=== PATIENT | female | born 1955 | race Caucasian/White ===

== ENCOUNTER 2016-12-24 06:47 | Emergency (ER) | payer OTHER ==
[~2016-12-24] VITALS: Ht 165.1 cm; Wt 103.5 kg
[~2016-12-24 06:47] MED LIST: ALBU18HF INHALATION; ALBU2.5V3 NEB; ALBU8.5H5 INH; AZIT250T6 PO; FLUT12HF IH; PRED20TA PO
[2016-12-24 06:51] VITALS: Ht 165.1 cm; Wt 103.5 kg
[2016-12-24] MEDS ORDERED: ALBUTEROL 0.5% (NEB) 2.5 MG/0.5 ML AMP HHN STA ×2 (07:07→07:39)
[2016-12-24] MEDS ORDERED: METHYLPREDNISOLONE 125 MG INJ IM ONE (07:30)
--- NOTE | 2016-12-24 08:44 | RADRPT ---
PROCEDURE: XR Chest. CLINICAL INDICATION: chest pain TECHNIQUE: Single frontal view of the chest was obtained COMPARISON: 06/29/2016 FINDINGS: The heart and mediastinum are within normal limits. There are mild chronic interstitial changes throughout the lungs. There is no focal consolidation. There is no pleural effusion or pneumothorax. RPTAT: AA IMPRESSION: Unchanged mild chronic interstitial changes throughout the lungs. .Topher Mcgee MD, MD Date Time Electronically viewed and signed by .Topher Mcgee MD, on 12/24/2016 08:43 .S/
[2016-12-24] MEDS ORDERED: ALBU18HF INHALATION (08:57)
[2016-12-24] MEDS ORDERED: ALBU2.5V3 NEB (08:57)
[2016-12-24] MEDS ORDERED: PRED20TA PO (08:57)
--- NOTE | 2016-12-24 09:00 | ERD ---
ER Documentation Chief Complaint Date/Time DATE: 12/24/16 TIME: 08:58 Chief Complaint Complains of SOB hx of Asthma out of inhaler HPI This 61-year-old female complains of wheezing for last day. She ran out of her inhaler as well as medicine for her nebulizer. She has a history of asthma with 2 hospitalizations in the last year. She denies fevers, productive sputum , chest pain or abdominal pain. ROS All systems reviewed and are negative except as per history of present illness. Medications Home Meds Active Scripts Albuterol Sulfate* (Ventolin HFA*) 18 Gm Hfa.aer.ad, 2 PUFF INHALATION Q4H, #1 INHALER Prov:WILMER CLAROS MD 12/24/16 Albuterol Sulfate* (Albuterol Sulfate* Neb) 0.083%-3 Ml Neb, 2.5 MG NEB Q4 Y for SHORTNESS OF BREATH, #30 EA Prov:WILMER CLAROS MD 12/24/16 Prednisone* (Prednisone*) 20 Mg Tab, 60 MG PO DAILY for 6 Days, #15 TAB 60 mg by mouth for 3 days then 40 mg by mouth for 3 days Prov:WILMER CLAROS MD 12/24/16 Prednisone (Prednisone) 20 Mg Tablet, 40 MG PO DAILY, #4 TAB Prov:MARRY PETERSEN 10/02/16 Azithromycin* (Azithromycin*) 250 Mg Tablet, 500 MG PO DAILY for 3 Days, #1 TAB Prov:MARRY PETERSEN 10/02/16 Salmeterol Xinaf-Fluticasone* (Advair HFA*) 45/212 Aerosol Inhaler, 2 INH IH BID , #1 INHALER Prov:MARRY PETERSEN DO 10/02/16 Albuterol Sulfate* (Ventolin HFA*) 18 Gm Hfa.aer.ad, 2 PUFF INHALATION Q4H, #1 INHALER Prov:MARRY PETERSEN DO 10/02/16 Albuterol Sulfate* (Albuterol Sulfate* HFA) 8.5 Gm Hfa.aer.ad, 1-2 PUFF INH Q4 Y for SHORTNESS OF BREATH, #1 EA Prov:HANY BUCHANAN MD 07/31/15 Reported Medications Albuterol Sulfate* (Albuterol Sulfate* Neb) 0.083%-3 Ml Neb, 2.5 MG NEB Q6 Y for WHEEZING AND SOB, #30 VIAL 11/29/15 Allergies Allergies: Coded Allergies: No Known Allergy (Unverified , 10/02/16) PMhx/Soc History of Surgery: No Anesthesia Reaction: No Hx Neurological Disorder: No Hx Respiratory Disorders: Yes Hx Cardiac Disorders: Yes Hx Psychiatric Problems: No Hx Miscellaneous Medical Probl: Yes (gastritis, HTN, asthma) Hx Alcohol Use: No Hx Substance Use: No Hx Tobacco Use: No Physical Exam Vitals Vital Signs Date Time Temp Pulse Resp B/P Pulse Ox O2 Delivery O2 Flow Rate FiO2 12/24/16 07:45 91 20 96 21 12/24/16 07:17 85 20 96 21 12/24/16 06:51 98.1 85 20 173/75 96 Physical Exam Const: [] Alert, [id number]. Head: Atraumatic Eyes: Normal Conjunctiva ENT: Normal External Ears, Nose and Mouth. Neck: Full range of motion..~ No meningismus. Resp: Clear to auscultation bilaterally. Diffuse wheezing without rales or retractions. Cardio: Regular rate and rhythm, no murmurs Abd: Soft, non tender, non distended. Normal bowel sounds Skin: No petechiae or rashes Back: No midline or flank tenderness Ext: No cyanosis, or edema. No calf swelling or Homans sign. Neur: Awake and alert Psych: Normal Mood and Affect Results 24 hrs Current Medications Medications (Trade) Dose Ordered Sig/Hussain Route PRN Reason Start Time Stop Time Status Last Admin Dose Admin Methylprednisolone Sodium Succinate (Solu-Medrol) 125 mg ONCE ONCE IM 12/24/16 07:30 12/24/16 07:31 DC 12/24/16 07:23 Albuterol (Proventil 0.5% (Neb)) 5 mg ONCE STAT HHN 12/24/16 07:07 12/24/16 07:09 DC 12/24/16 07:16 Albuterol (Proventil 0.5% (Neb)) 10 mg ONCE STAT HHN 12/24/16 07:39 12/24/16 07:40 DC 12/24/16 07:43 Procedures/MDM Patient was given albuterol treatment 5 mg and 10 mg for persistent wheezing. Patient was given Solu-Medrol 125 mg I am and had improved breath sounds on serial exam and no evidence of hypoxemia or tachycardia. Patient felt better after observation and treatment. Patient presents with vaginal exacerbation without signs of pneumonia, signs or symptoms or risk factors for pulmonary embolism no evidence of chest pain or symptoms acute coronary syndrome. Patient will be treated with refills of her albuterol and prednisone taper at home. Patient is advised to return for any worsening symptoms with primary care doctor. Departure Diagnosis: Primary Impression: Asthma attack Condition: Stable Patient Instructions: Asthma, Acute (Adult) Additional Instructions: Cheque otro vez con lamb doctor primario en el proximo gunderson or regresa para mas o nueva simptomas. WILMER CLAROS MD Dec 24, 2016 08:59
[2016-12-24 09:08] VITALS: RESP 18
== END 2016-12-24 09:09 | disposition home or self-care (01) ==
LOC: FTE 06:47
DX: J45.901 Unspecified asthma with (acute) exacerbation (principal); I10 Essential (primary) hypertension
CPT/HCPCS: 71010; 94644; 94664; J2930; Z7610; 96372

== ENCOUNTER 2017-01-29 07:14 | Emergency (ER) | payer OTHER ==
[~2017-01-29] VITALS: Wt 90.0 kg
[2017-01-29] MEDS ORDERED: ONDANSETRON (ODT) 4 MG TAB ODT STA (07:32)
[2017-01-29] MEDS ORDERED: ALBUTEROL 0.083% (NEB) 2.5 MG/3 ML AMP INH STA (07:32)
--- NOTE | 2017-01-29 07:39 | ERD ---
ER Documentation Chief Complaint Date/Time DATE: 01/29/17 TIME: 07:36 Chief Complaint SOB WITH COUGHING FOR THE PAST 3 DAYS. MILD DISTRESS. MILD ACCESS USE HPI Patient is a 61-year-old female who comes in coughing and congested for the last 3 days. She states it is a cough productive of slight yellow phlegm without any fever. She has a mild sore throat with bilateral otalgia and a clear runny nose. She has been using her breathing treatments without any relief. Denies any sick contacts, chest pain, abdominal pain, nausea, vomiting , diarrhea, dysuria, hematuria, flank pain, back pain, abnormal bleeding, bruising, or rashes. She has not traveled out of the country nor she been on any recent antibiotics. The remainder review systems are negative. ROS All systems reviewed and are negative except as per history of present illness. Medications Home Meds Active Scripts Salmeterol Xinaf-Fluticasone* (Advair HFA*) 45 Aerosol Inhaler, 2 INH IH BID , #1 INHALER Prov:MARRY PETERSEN DO 10/02/16 Albuterol Sulfate* (Albuterol Sulfate* HFA) 8.5 Gm Hfa.aer.ad, 1-2 PUFF INH Q4 Y for SHORTNESS OF BREATH, #1 EA Prov:HANY BUCHANAN MD 07/31/15 Discontinued Reported Medications Albuterol Sulfate* (Albuterol Sulfate* Neb) 0.083%-3 Ml Neb, 2.5 MG NEB Q6 Y for WHEEZING AND SOB, #30 VIAL 11/29/15 Discontinued Scripts Albuterol Sulfate* (Ventolin HFA*) 18 Gm Hfa.aer.ad, 2 PUFF INHALATION Q4H, #1 INHALER Prov:WILMER CLAROS MD 12/24/16 Albuterol Sulfate* (Albuterol Sulfate* Neb) 0.083%-3 Ml Neb, 2.5 MG NEB Q4 Y for SHORTNESS OF BREATH, #30 EA Prov:WILMER CLAROS MD 12/24/16 Prednisone* (Prednisone*) 20 Mg Tab, 60 MG PO DAILY for 6 Days, #15 TAB 60 mg by mouth for 3 days then 40 mg by mouth for 3 days Prov:WILMER CLAROS MD 12/24/16 Prednisone (Prednisone) 20 Mg Tablet, 40 MG PO DAILY, #4 TAB Prov:MARRY PETERSEN DO 10/02/16 Azithromycin* (Azithromycin*) 250 Mg Tablet, 500 MG PO DAILY for 3 Days, #1 TAB Prov:MARRY PETERSEN DO 10/02/16 Albuterol Sulfate* (Ventolin HFA*) 18 Gm Hfa.aer.ad, 2 PUFF INHALATION Q4H, #1 INHALER Prov:MARRY PETERSEN DO 10/02/16 Allergies Allergies: Coded Allergies: No Known Allergy (Unverified , 01/29/17) PMhx/Soc History of Surgery: No Anesthesia Reaction: No Hx Neurological Disorder: No Hx Respiratory Disorders: Yes Hx Cardiac Disorders: Yes Hx Psychiatric Problems: No Hx Miscellaneous Medical Probl: Yes (gastritis, HTN, asthma) Hx Alcohol Use: No Hx Substance Use: No Hx Tobacco Use: No Smoking Status: Never smoker FmHx Family History: coronary disease, diabetes Physical Exam Vitals Vital Signs Date Time Temp Pulse Resp B/P Pulse Ox O2 Delivery O2 Flow Rate FiO2 01/29/17 09:38 77 22 92 21 01/29/17 08:07 92 21 01/29/17 08:07 97 22 97 21 01/29/17 07:55 Nasal Cannula 2 01/29/17 07:16 97.8 94 26 144/72 93 Physical Exam Const: [] Well-developed well-nourished female sitting on the bed with mild respiratory distress Head: Atraumatic normocephalic Eyes: Normal Conjunctiva ENT: Normal External Ears, Nose and Mouth. Tympanic membrane slightly erythematous with serous otitis media bilaterally Neck: Full range of motion..~ No meningismus. Resp: Bilateral end expiratory wheezing noted, mild tachypnea, no retractions , nasal flaring, or crackles noted Cardio: Regular rate and rhythm, no murmurs Abd: Soft, non tender, non distended. Normal bowel sounds Skin: No petechiae or rashes Back: No midline or flank tenderness Ext: No cyanosis, or edema Neur: Awake and alert, oriented 3, GCS of 15, moves all extremities equally Psych: Normal Mood and Affect Result Diagram: 01/29/1712 01/29/17 0712 Results 24 hrs Laboratory Tests Test 01/29/17 07:12 Activated Partial Thromboplast Time 28.9Sec Alanine Aminotransferase (ALT/SGPT) 20IU/L Albumin 4.1g/dl Albumin/Globulin Ratio 1.20 Alkaline Phosphatase 94IU/L Anion Gap 14 Aspartate Amino Transf (AST/SGOT) 24IU/L Basophils # 0.110^3/ul Basophils % 1.1% Blood Urea Nitrogen 12mg/dl Calcium Level 8.9mg/dl Carbon Dioxide Level 32mmol/L Chloride Level 103mmol/L Creatinine 0.66mg/dl Direct Bilirubin 0.00mg/dl Eosinophils # 0.910^3/ul Eosinophils % 11.4% Globulin 3.40g/dl Glucose Level 104mg/dl Hematocrit 47.1% Hemoglobin 14.9g/dl INR International Normalized Ratio 0.94 Indirect Bilirubin 0.1mg/dl Lymphocytes # 1.810^3/ul Lymphocytes % 22.1% Mean Corpuscular Hemoglobin 28.4pg Mean Corpuscular Hemoglobin Concent 31.6g/dl Mean Corpuscular Volume 89.7fl Mean Platelet Volume 11.5fl Monocytes # 0.610^3/ul Monocytes % 6.9% Neutrophils # 4.810^3/ul Neutrophils % 58.3% Nucleated Red Blood Cells # 0.010^3/ul Nucleated Red Blood Cells % 0.0/100WBC Platelet Count 91102^3/UL Potassium Level 3.9mmol/L Prothrombin Time 12.6Sec Prothrombin Time Ratio 1.0 Red Blood Count 5.2510^6/ul Red Cell Distribution Width 14.3% Sodium Level 145mmol/L Total Bilirubin 0.1mg/dl Total Protein 7.5g/dl Troponin I 0.016ng/ml White Blood Count 8.310^3/ul Current Medications Medications (Trade) Dose Ordered Sig/Hussain Route PRN Reason Start Time Stop Time Status Last Admin Dose Admin Albuterol (Proventil 0.083% (Neb)) 5 mg ONCE STAT INH 01/29/17 07:32 01/29/17 07:36 DC 01/29/17 08:07 Dexamethasone (Decadron) 6 mg ONCE ONCE IV 01/29/17 08:00 01/29/17 08:01 DC 01/29/17 08:18 Hydrocodone Bit/ Homatropine Methylb (Hycodan Liquid) 10 ml ONCE ONCE PO 01/29/17 08:00 01/29/17 08:01 DC 01/29/17 08:18 Ondansetron HCl 4 mg 4 mg ONCE STAT ODT 01/29/17 07:32 01/29/17 07:37 DC 01/29/17 08:18 Levofloxacin/ Dextrose (Levaquin 750 Mg/ D5W 150 ml (Pmx)) 150 ml @ 100 mls/hr ONCE ONCE IVPB 01/29/17 09:30 01/29/17 10:59 DC 01/29/17 09:32 Albuterol (Proventil 0.083% (Neb)) 5 mg ONCE STAT HHN 01/29/17 09:27 01/29/17 09:28 DC 01/29/17 09:37 Procedures/MDM Differential includes but is not limited to asthma exacerbation, bronchitis, pneumonia, influenza, pulmonary edema, viral syndrome EKG: Rate/Rhythm: Normal Sinus Rhythm at 80 beats per minutes without any evidence for acute ischemia noted, no old EKG available for comparison QRS, ST, T-waves: No changes consistent w/ acute ischemia Impression: No evidence of ischemia or arrhythmia Chest x-ray is consistent with bronchitis I reevaluated the patient and she was still wheezing so I ordered her another breathing treatment and after that she is moving air much better. She states she feels improved and would like to be discharged home. I advised her to use her inhaler every 2-3 hours for the next 2-3 days and to follow-up with her primary care physician for recheck. She states she would. Departure Diagnosis: Primary Impression: Bronchitis Additional Impression: Asthma exacerbation Condition: Good Patient Instructions: Asthma, Bronchitis With Wheezing (Adult) Additional Instructions: Use her inhaler every 2-3 hours for the next 2-3 days. Take all the medications as prescribed and follow-up with your primary care physician in the next 2-3 days for recheck. Return to the emergency department for any increased shortness of breath, wheezing not responding to your inhaler, chest pain, or new or worsening symptoms. PUJA CARRERA Jan 29, 2017 07:39
[2017-01-29] MEDS ORDERED: HYDROCODONE/HOMATROPINE 5ML CUP PO ONE (08:00)
[2017-01-29] MEDS ORDERED: DEXAMETHASONE 10 MG/ML 1 ML INJ IV ONE (08:00)
[2017-01-29 08:05] LABS: ADD SCAN DIFF NO
[2017-01-29 08:11] LABS: BASOPHIL # 0.1 10^3/ul (0.0-0.1); BASOPHILS % 1.1 % (0.0-2.0); EOSINOPHILS # 0.9 10^3/ul (0.0-0.5); EOSINOPHILS % 11.4 % (0.0-7.0); HEMATOCRIT 47.1 % (37.0-47.0); HEMOGLOBIN 14.9 g/dl (12.0-16.0); LYMPHOCYTES # 1.8 10^3/ul (0.8-2.9); LYMPHOCYTES % 22.1 % (15.0-51.0); MEAN CORPUSCULAR HEMOGLOBIN 28.4 pg (29.0-33.0); MEAN CORPUSCULAR HGB CONC 31.6 g/dl (32.0-37.0); MEAN CORPUSCULAR VOLUME 89.7 fl (82.0-101.0); MEAN PLATELET VOLUME 11.5 fl (7.4-10.4); MONOCYTE # 0.6 10^3/ul (0.3-0.9); MONOCYTES % 6.9 % (0.0-11.0); NEUTROPHIL # 4.8 10^3/ul (1.6-7.5); NEUTROPHILS % 58.3 % (39.0-77.0); PLATELET COUNT 283 10^3/UL (140-415); RED BLOOD COUNT 5.25 10^6/ul (4.20-5.40); RED CELL DISTRIBUTION WIDTH 14.3 % (11.5-14.5); WHITE BLOOD COUNT 8.3 10^3/ul (4.8-10.8)
[2017-01-29 08:26] LABS: ALBUMIN 4.1 g/dl (3.3-4.9)
[2017-01-29 08:27] LABS: INR 0.94; POTASSIUM 3.9 mmol/L (3.5-5.1); PROTIME 12.6 Sec (12.2-14.2)
[2017-01-29 08:28] LABS: PARTIAL THROMBOPLASTIN TIME 28.9 Sec (25.0-35.0)
[2017-01-29 08:29] LABS: CREATININE 0.66 mg/dl (0.44-1.00)
[2017-01-29 08:30] LABS: ALBUMIN/GLOBULIN RATIO 1.2; BILIRUBIN,INDIRECT 0.1 mg/dl (0-1.1); BILIRUBIN,TOTAL 0.1 mg/dl (0.2-1.3); CALCIUM 8.9 mg/dl (8.4-10.2); TOTAL PROTEIN 7.5 g/dl (6.1-8.1)
--- NOTE | 2017-01-29 08:34 | RADRPT ---
PROCEDURE: Chest Radiograph. CLINICAL INDICATION: Shortness of breath TECHNIQUE: Single frontal chest radiograph. COMPARISON: Chest radiograph 12/24/2016 FINDINGS: The cardiomediastinal silhouette is within normal limits. There is diffuse interstitial coarsening and bronchial wall thickening which is stable over time and likely related to chronic bronchitis. N o confluent or lobar infiltrate is seen.. The bones are intact. IMPRESSION: 1. Stable coarsened interstitial opacities and bronchial wall thickening suggesting chronic bronchi tis. 2. No evidence of superimposed acute cardiopulmonary disease. RPTAT: KK .[place]ana Alexandre MD, MD Date Time Electronically viewed and signed by .Montana Alexandre MD, on 01/29/2017 08:33 .B/
[2017-01-29 08:42] LABS: TROPONIN-I 0.016 ng/ml (0.00-0.12)
[2017-01-29] MEDS ORDERED: ALBUTEROL 0.083% (NEB) 2.5 MG/3 ML AMP HHN STA (09:27)
[2017-01-29] MEDS ORDERED: LEVOFLOXACIN 750MG/D5W (PMX) 150 ML IVPB ONE (09:30)
[2017-01-29] MEDS ORDERED: HYDR473S12 PO (12:17)
[2017-01-29] MEDS ORDERED: PRED20TA PO (12:17)
[2017-01-29] MEDS ORDERED: BENZ100C70 PO (12:18)
[2017-01-29] MEDS ORDERED: LEVO750T25 PO (12:18)
[2017-01-29] MEDS ORDERED: ALBU90AE INHALATION (12:36)
[2017-01-29 12:45] VITALS: BP 139/78; PULSE 80; RESP 18
== END 2017-01-29 12:47 | disposition home or self-care (01) ==
LOC: E/R 07:14
DX: J20.9 Acute bronchitis, unspecified (principal); R40.2252 Coma scale, best verbal response, oriented, at arrival to emergency department; J45.901 Unspecified asthma with (acute) exacerbation; I10 Essential (primary) hypertension; R40.2142 Coma scale, eyes open, spontaneous, at arrival to emergency department; R40.2362 Coma scale, best motor response, obeys commands, at arrival to emergency department
CPT/HCPCS: 36415; 71010; 80053; 84484; 85025; 85610; 85730; 93005; 94640; 96374; 96375; J1100; J1956; Z7502; Z7610; 94664

== ENCOUNTER → 2017-02-01 | Outpatient (CLI) | END | disposition home or self-care (01) | DX: M17.11 Unilateral primary osteoarthritis, right knee (principal); M25.561 Pain in right knee | CPT/HCPCS: 20610; J1030; Z7610 ==

== ENCOUNTER 2017-03-16 08:09 | Emergency (ER) | payer OTHER ==
[~2017-03-16] VITALS: Ht 157.5 cm; Wt 102.0 kg
[~2017-03-16 08:09] MED LIST changes: -ALBU18HF INHALATION; -ALBU2.5V3 NEB; +ALBU90AE INHALATION; -AZIT250T6 PO; +BENZ100C70 PO; +HYDR473S12 PO; +LEVO750T25 PO
[2017-03-16 08:10] VITALS: Ht 157.5 cm; Wt 102.0 kg
[2017-03-16] MEDS ORDERED: LEVALBUTEROL (NEB) 1.25 MG/0.5 ML AMP HHN ONE (09:00)
[2017-03-16] MEDS ORDERED: METHYLPREDNISOLONE 125 MG INJ IM ONE (09:00)
--- NOTE | 2017-03-16 10:17 | RADRPT ---
PROCEDURE: XR Chest. CLINICAL INDICATION: Cough, wheezing TECHNIQUE: Single frontal chest x-ray. COMPARISON: 01/29/2017 FINDINGS: No acute infiltrate, pleural effusion or pneumothorax is identified. Cardiomediastinal silhouette i s within normal limits. The osseous structures are unremarkable. IMPRESSION: 1. No evidence of acute cardiopulmonary process. RPTAT: EE .Adi Kenny MD, MD Date Time Electronically viewed and signed by .Adi Kenny MD, on 03/16/2017 10:17 .R/
[2017-03-16] MEDS ORDERED: ALBU8.5H3 INH (10:28)
[2017-03-16] MEDS ORDERED: ALBU2.5V3 NEB (10:29)
[2017-03-16] MEDS ORDERED: PRED20TA PO ×2 (10:30→10:31)
--- NOTE | 2017-03-16 10:36 | ERD ---
ER Documentation Chief Complaint Date/Time DATE: 03/16/17 TIME: 10:32 Chief Complaint ASTHMA ATTACK HPI Patient is a 61-year-old female with a past medical history of asthma who presents the ED with asthma exacerbation and cough for 3 days. She states that she ran out of her albuterol. She usually takes albuterol but did not receive a refill and has not been taking any medications for the last 3 days. She complains of wheezing and shortness of breath. She states that her symptoms are exactly what she has experienced in the past with her asthma exacerbation. She denies fever or chills. She denies URI symptoms. Denies leg pain or swelling. She denies chest pain. She denies recent travel or recent surgeries. ROS All systems reviewed and are negative except as per history of present illness. Medications Home Meds Active Scripts Prednisone* (Prednisone*) 20 Mg Tab, 60 MG PO DAILY for 6 Days, TAB Take Prednisone 60mg PO x 3 days, followed by Prednisone 40mg PO x 3 days. Prov:DEWAYNE HAIR PA-C 03/16/17 Albuterol Sulfate* (Albuterol Sulfate* Neb) 0.083%-3 Ml Neb, 2.5 MG NEB Q4 Y for SHORTNESS OF BREATH, #30 EA Prov:DEWAYNE HAIR PA-C 03/16/17 Albuterol Sulfate* (Proair HFA*) 8.5 Gm Hfa.aer.ad, 2 PUFF INH Q4, #2 INHALER Prov:DEWAYNE HAIR PA-C 03/16/17 Albuterol Sulfate (Proair Respiclick) 90 Mcg Aer.pow.ba, 2 PUFFS INHALATION Q3HWA for 7 Days, #1 BOTTLE 1 Refill Prov:PUJA CARRERA 01/29/17 Levofloxacin* (Levaquin*) 750 Mg Tablet, 750 MG PO DAILY for 5 Days, TAB 0 Refills Prov:PUJA CARRERA 01/29/17 Benzonatate* (Tessalon Perle*) 100 Mg Capsule, 200 MG PO Q8H Y for COUGH, #30 CAP 0 Refills Prov:PUJA CARRERA 01/29/17 Hydrocodone-Chlorpheniramine Polis* (Hydrocodone-Chlorpheniramine Polis*) 10-8MG /5ML Yvette.er.12h, 5 ML PO Q12H Y for COUGH, #90 ML 0 Refills Prov:PUJA CARRERA 01/29/17 Prednisone* (Prednisone*) 20 Mg Tab, 60 MG PO DAILY for 5 Days, TAB 0 Refills Prov:PUJA CARRERA 01/29/17 Salmeterol Xinaf-Fluticasone* (Advair HFA*) 45/212 Aerosol Inhaler, 2 INH IH BID , #1 INHALER Prov:MARRY PETERSEN DO 10/02/16 Albuterol Sulfate* (Albuterol Sulfate* HFA) 8.5 Gm Hfa.aer.ad, 1-2 PUFF INH Q4 Y for SHORTNESS OF BREATH, #1 EA Prov:HANY BUCHANAN MD 07/31/15 Allergies Allergies: Coded Allergies: No Known Allergy (Unverified , 01/29/17) PMhx/Soc Medical and Surgical Hx: pt denies Surgical Hx History of Surgery: No Anesthesia Reaction: No Hx Neurological Disorder: No Hx Respiratory Disorders: Yes Hx Cardiac Disorders: Yes Hx Psychiatric Problems: No Hx Miscellaneous Medical Probl: Yes (gastritis, HTN, asthma) Hx Alcohol Use: No Hx Substance Use: No Hx Tobacco Use: No Smoking Status: Never smoker FmHx Family History: No coronary disease, No diabetes, No other Physical Exam Vitals Vital Signs Date Time Temp Pulse Resp B/P Pulse Ox O2 Delivery O2 Flow Rate FiO2 03/16/17 09:13 85 20 97 21 03/16/17 08:10 98.3 100 26 169/88 93 Physical Exam GENERAL: Well-developed, well-nourished female. Appears in no acute distress. HEAD: Normocephalic, atraumatic. EYES: Pupils are equally reactive bilaterally. EOMs grossly intact. No conjunctival erythema. ENT: Moist mucous membranes. No uvula deviation. No kissing tonsils. No exudates. NECK: Supple. No lymphadenopathy or thyromegaly. No meningismus. negative kernig. negative brudinski. LUNG: Clear to auscultation bilaterally. No rhonchi,rales or coarse breath sounds. Wheezing in all lung lange. No retractions. HEART: Regular rate and rhythm. No murmurs, rubs or gallops. Extremities: Equal pulses bilaterally. No peripheral clubbing, cyanosis or edema. No unilateral leg swelling. Negative Homans sign NEUROLOGIC: Alert and oriented. Moving all four extremities. 5/5 strength in all extremities. Normal speech. Steady gait. SKIN: Normal color. Warm and dry. No rashes or lesions. Capillary refill < 2 seconds Results 24 hrs Current Medications Medications (Trade) Dose Ordered Sig/Hussain Route PRN Reason Start Time Stop Time Status Last Admin Dose Admin Methylprednisolone Sodium Succinate (Solu-Medrol) 125 mg ONCE ONCE IM 03/16/17 09:00 03/16/17 09:01 DC 03/16/17 09:49 Levalbuterol (Xopenex Neb) 1.25 mg ONCE ONCE HHN 03/16/17 09:00 03/16/17 09:01 DC 03/16/17 09:11 Procedures/MDM ER COURSE: I kept the patient and/or family informed of laboratory and diagnostic imaging results throughout the emergency room course. IMAGING STUDIES [place] [id number] Radiology Main Line: [phone] DIAGNOSTIC IMAGING REPORT Patient: SU AGEE : 1955 Age: 61 Sex: F MR #: [id number] DOS: 03/16/17 0857 Ordering MD: DEWAYNE HAIR PA-C Location: [facility] Room/Bed: PROCEDURE: XR Chest. CLINICAL INDICATION: Cough, wheezing TECHNIQUE: Single frontal chest x-ray. COMPARISON: 01/29/2017 FINDINGS: No acute infiltrate, pleural effusion or pneumothorax is identified. Cardiomediastinal silhouette is within normal limits. The osseous structures are unremarkable. IMPRESSION: 1. No evidence of acute cardiopulmonary process. RPTAT: EE .Adi Kenny MD, Date Time Electronically viewed and signed by .dAi Kenny MD, on 03/16/2017 10: 17 .R/ CC: DEWAYNE HAIR PA-C MEDICATIONS Solu-Medrol 125 mg IM. Tolerated well with no adverse reaction PROCEDURES RT consult. Xopenex. Tolerated well with no adverse reaction. MEDICAL DECISION MAKING: This is a 61-year-old female who presents with asthma exacerbation 3 days vital signs were reviewed. Patient is afebrile. Patient is not hypoxic. Patient is not toxic or ill-appearing. Intake patient had an oxygen saturation of 93. Patient did have wheezing in all lung lange. Her x-rays of by radiologist is unremarkable. I reexamined patient after administration of medication and she stated improvement in her symptoms. Patient's oxygen saturation had increased to 97%. Low suspicion for pneumonia, PE, pneumothorax , ACS, epiglottitis, obstruction, TB, pertussis, meningitis, sepsis. DISCHARGE: At this time, patient is stable for discharge and outpatient management with no new complaints during the ER course. Patient was sent home with albuterol, ProAir air, prednisone and a copy of her imaging report.. Patient will be discharged home with instructions to recheck for new or worsening symptoms such as fever, nausea, weakness, LOC and to follow up with primary care in the next 1 -2 days. Patient was advised to return to the ER for any new or worsening symptoms. Plan was discussed and patient and/or family understands and agrees. Home instructions were given. Departure Diagnosis: Primary Impression: Asthma with acute exacerbation Asthma severity: unspecified severity Qualified Code: J45.901 - Asthma with acute exacerbation, unspecified asthma severity Condition: Stable Patient Instructions: Asthma, Acute (Adult) Referrals: [facility] (PCP) Additional Instructions: Llame al doctor REJI y lloyd ian TRINIDAD PARA DENTRO DE 1-2 ISABEL.Dgale a la secretaria que nosotros le instruimos hacer esta trinidad.Avise o llame si lamb condicin se empeora antes de la trinidad. Regresa aqui si peor o no mejor. DEWAYNE HAIR PA-C March 16, 2017 10:36
[2017-03-16 10:46] VITALS: BP 119/65; PULSE 91; RESP 20; TEMP 98.5
== END 2017-03-16 10:47 | disposition home or self-care (01) ==
LOC: FTE 08:09
DX: J45.901 Unspecified asthma with (acute) exacerbation (principal); I10 Essential (primary) hypertension
CPT/HCPCS: 71010; 94664; 96372; J2930; Z7502; Z7610

== ENCOUNTER 2017-05-04 09:19 | Emergency (ER) | payer MEDICARE, OTHER ==
[~2017-05-04] VITALS: Ht 162.6 cm; Wt 104.0 kg
[~2017-05-04 09:19] MED LIST changes: +ALBU2.5V3 NEB; +ALBU8.5H3 INH
[2017-05-04 09:22] VITALS: Ht 162.6 cm; Wt 104.0 kg
[2017-05-04] MEDS ORDERED: METHYLPREDNISOLONE 125 MG INJ IM STA (09:56)
[2017-05-04] MEDS ORDERED: ALBUTEROL 0.5% (NEB) 2.5 MG/0.5 ML AMP INH STA ×2 (09:56→12:15)
[2017-05-04] MEDS ORDERED: IPRATROPIUM (NEB) 0.5 MG/2.5 ML AMP INH STA (09:56)
--- NOTE | 2017-05-04 10:48 | RADRPT ---
PROCEDURE: XR Chest 1 View. CLINICAL INDICATION: Shortness of breath, asthma. TECHNIQUE: AP view of the chest was obtained. COMPARISON: March 16, 2017 FINDINGS: The heart size is within normal limits. Calcified atherosclerosis is noted in the aorta. Scattered atelectasis is noted in the bilateral lower lobes. No consolidations are identified. No pneumothora x is seen. Osseous structures are intact. IMPRESSION: Calcified atherosclerosis in the aorta. Scattered atelectasis in the bilateral lower lobes. RPTAT: AA .Dread Drummond MD, Date Time Electronically viewed and signed by .Dread Drummond MD, on 05/04/2017 10:48 .P/
[2017-05-04] MEDS ORDERED: ALBU18HF INHALATION (13:42)
[2017-05-04] MEDS ORDERED: PRED20TA PO (13:42)
[2017-05-04] MEDS ORDERED: ALBU2.5V3 NEB (13:43)
--- NOTE | 2017-05-04 14:09 | ERD ---
ER Documentation Chief Complaint Date/Time DATE: 05/04/17 TIME: 14:06 Chief Complaint BIB C/O COUGH, CONGESTION, & SOB SINCE WEDNESDAY. WHEEZING AUSCULTATED HPI 61-year-old female patient with a past medical history of asthma presents to the ED complaining of a productive cough, congestion, shortness of breath since 5 days ago. Reports that she feels like she is wheezing. States that she is taking Combivent and then near prescribed by a doctor in [place]. Patient denies any recent traveling. Denies any chest pain, abdominal pain, dyspnea on exertion, orthopnea, nausea, vomiting, diarrhea, rashes. Denies any leg swelling. ROS All systems reviewed and are negative except as per history of present illness. Medications Home Meds Active Scripts Albuterol Sulfate* (Albuterol Sulfate* Neb) 0.083%-3 Ml Neb, 2.5 MG NEB Q4 Y for SHORTNESS OF BREATH, #30 EA Prov:RY ORTEGA PA-C 05/04/17 Albuterol Sulfate* (Ventolin HFA*) 18 Gm Hfa.aer.ad, 2 PUFF INHALATION Q4H, #1 INHALER Prov:RY ORTEGA PA-C 05/04/17 Prednisone* (Prednisone*) 20 Mg Tab, 40 MG PO DAILY for 4 Days, TAB Prov:RY ORTEGA PA-C 05/04/17 Prednisone* (Prednisone*) 20 Mg Tab, 60 MG PO DAILY for 6 Days, TAB Take Prednisone 60mg PO x 3 days, followed by Prednisone 40mg PO x 3 days. Prov:DEWAYNE HAIR PA-C 03/16/17 Albuterol Sulfate* (Albuterol Sulfate* Neb) 0.083%-3 Ml Neb, 2.5 MG NEB Q4 Y for SHORTNESS OF BREATH, #30 EA Prov:DEWAYNE HAIR PA-C 03/16/17 Albuterol Sulfate* (Proair HFA*) 8.5 Gm Hfa.aer.ad, 2 PUFF INH Q4, #2 INHALER Prov:DEWAYNE HAIR PA-C 03/16/17 Albuterol Sulfate (Proair Respiclick) 90 Mcg Aer.pow.ba, 2 PUFFS INHALATION Q3HWA for 7 Days, #1 BOTTLE 1 Refill Prov:PUJA CARRERA 01/29/17 Levofloxacin* (Levaquin*) 750 Mg Tablet, 750 MG PO DAILY for 5 Days, TAB 0 Refills Prov:PUJA CARRERA 01/29/17 Benzonatate* (Tessalon Perle*) 100 Mg Capsule, 200 MG PO Q8H Y for COUGH, #30 CAP 0 Refills Prov:PUJA CARRERA 01/29/17 Hydrocodone-Chlorpheniramine Polis* (Hydrocodone-Chlorpheniramine Polis*) 10-8MG /5ML Yvette.er.12h, 5 ML PO Q12H Y for COUGH, #90 ML 0 Refills Prov:PUJA CARRERA 01/29/17 Prednisone* (Prednisone*) 20 Mg Tab, 60 MG PO DAILY for 5 Days, TAB 0 Refills Prov:PUJA CARRERA 01/29/17 Salmeterol Xinaf-Fluticasone* (Advair HFA*) 45/212 Aerosol Inhaler, 2 INH IH BID , #1 INHALER Prov:MARRY PETERSEN DO 10/02/16 Albuterol Sulfate* (Albuterol Sulfate* HFA) 8.5 Gm Hfa.aer.ad, 1-2 PUFF INH Q4 Y for SHORTNESS OF BREATH, #1 EA Prov:HANY BUCHANAN MD 07/31/15 Allergies Allergies: Coded Allergies: No Known Allergy (Unverified , 01/29/17) PMhx/Soc History of Surgery: No Anesthesia Reaction: No Hx Neurological Disorder: No Hx Respiratory Disorders: Yes Hx Cardiac Disorders: Yes Hx Psychiatric Problems: No Hx Miscellaneous Medical Probl: Yes (gastritis, HTN, asthma) Hx Alcohol Use: No Hx Substance Use: No Hx Tobacco Use: No Smoking Status: Never smoker Physical Exam Vitals Vital Signs Date Time Temp Pulse Resp B/P Pulse Ox O2 Delivery O2 Flow Rate FiO2 05/04/17 14:25 103 96 Room Air 05/04/17 12:33 83 19 95 21 05/04/17 10:13 80 19 95 21 05/04/17 09:22 99.0 94 20 167/79 90 Physical Exam Const: Ale-mvw-avlbhtqjw, well-nourished. In no acute distress. Head: Atraumatic, normocephalic Eyes: Normal Conjunctiva without injection. No purulent discharge. PERRL. EOMI ENT: Normal external ear. Ear canal without erythema. Tympanic membrane pearly shields without effusion or bulging. Nasal canal clear with normal turbinates. Moist oropharynx without tonsillar exudates. Non-erythematous pharynx. Uvula midline. No drooling. No trismus. Neck: Full range of motion. No meningismus. No cervical lymphadenopathy. Resp: Expiratory wheezing and inspiratory wheezing noted. No rhonchi, rales, or crackles. No accessory muscle use. No retractions. Cardio: Regular rate and rhythm. No murmurs, rubs or gallops. Abd: Soft, non tender, non distended. Normal bowel sounds. No palpable masses. No rebound tenderness. No guarding. Skin: No petechiae or rashes Back: No midline tenderness. No CVA tenderness. Ext: No cyanosis, or edema. Neur: Awake and alert. Psych: Normal Mood and Affect Results 24 hrs Current Medications Medications (Trade) Dose Ordered Sig/Hussain Route PRN Reason Start Time Stop Time Status Last Admin Dose Admin Albuterol (Proventil 0.5% (Neb)) 10 mg ONCE STAT INH 05/04/17 09:56 05/04/17 09:57 DC 05/04/17 10:07 Ipratropium Temperance (Atrovent 0.02% (Neb)) 1 mg ONCE STAT INH 05/04/17 09:56 05/04/17 09:57 DC 05/04/17 10:07 Methylprednisolone Sodium Succinate (Solu-Medrol) 125 mg ONCE STAT IM 05/04/17 09:56 05/04/17 09:57 DC 05/04/17 10:07 Albuterol (Proventil 0.5% (Neb)) 5 mg ONCE STAT INH 05/04/17 12:15 05/04/17 12:16 DC 05/04/17 12:30 Procedures/MDM This is a 61-year-old female patient with a past medical history of asthma presents to the ED complaining of a productive cough, congestion, some shortness of breath, wheezing that started 4 days ago. Patient is afebrile and nontoxic-appearing. Patient has normal vital signs. Breathing treatment consisting of 10 mg continuous albuterol, 1 mg continuous Atrovent was ordered to further treat patient with improvement however patient still had wheezing noted with inspiration and expiration therefore an additional continuous 5 mg albuterol is ordered to further treat patient with improvement. Patient is speaking in full sentences. Low suspicion for respiratory distress. Chest x- ray was ordered. PROCEDURE: XR Chest 1 View. CLINICAL INDICATION: Shortness of breath, asthma. TECHNIQUE: AP view of the chest was obtained. COMPARISON: March 16, 2017 FINDINGS: The heart size is within normal limits. Calcified atherosclerosis is noted in the aorta. Scattered atelectasis is noted in the bilateral lower lobes. No consolidations are identified. No pneumothorax is seen. Osseous structures are intact. IMPRESSION: Calcified atherosclerosis in the aorta. Scattered atelectasis in the bilateral lower lobes. Patient likely has an asthma exacerbation. Low suspicion for atypical LA, pneumonia, pulmonary embolism, pneumothorax, cardiac tamponade, sinusitis, peritonsillar abscess, mastoiditis, CHF, Dutch's angina, retropharyngeal abscess, meningitis, sepsis or other emergent conditions. Patient's respiratory status has stabilized while in the department and is appropriate for outpatient work up. Exam and work up not consistent w/ impending respiratory failure or cardiovascular collapse. Discharge medications: Prednisone, Albuterol, Ventolin Follow up with primary care physician in 1-2 days. Instructed patient to return to the ED sooner for any worsening symptoms. Patient's questions were answered. Patient understood and agreed with discharge plan. Patient discharged stable. Departure Diagnosis: Primary Impression: Asthma exacerbation Condition: Stable Patient Instructions: Asthma, Acute (Adult) Referrals: [facility] (PCP) [facility] YOU HAVE RECEIVED A MEDICAL SCREENING EXAM AND THE RESULTS INDICATE THAT YOU DO NOT HAVE A CONDITION THAT REQUIRES URGENT TREATMENT IN THE EMERGENCY DEPARTMENT. FURTHER EVALUATION AND TREATMENT OF YOUR CONDITION CAN WAIT UNTIL YOU ARE SEEN IN YOUR DOCTORS OFFICE WITHIN THE NEXT 1-2 DAYS. IT IS YOUR RESPONSIBILITY TO MAKE AN APPOINTMENT FOR FOLOW-UP CARE. IF YOU HAVE A PRIMARY DOCTOR --you should call your primary doctor and schedule an appointment IF YOU DO NOT HAVE A PRIMARY DOCTOR YOU CAN CALL OUR PHYSICIAN REFERRAL HOTLINE AT IF YOU CAN NOT AFFORD TO SEE A PHYSICIAN YOU CAN CHOSE FROM THE FOLLOWING [facility] CLINICS [facility] [address] [facility]. [facility] [address] [facility] [address] [facility]. [facility] [address] [facility]. [facility] [address] [facility]. [facility]. [address] [facility]. [facility] YOU HAVE RECEIVED A MEDICAL SCREENING EXAM AND THE RESULTS INDICATE THAT YOU DO NOT HAVE A CONDITION THAT REQUIRES URGENT TREATMENT IN THE EMERGENCY DEPARTMENT. FURTHER EVALUATION AND TREATMENT OF YOUR CONDITION CAN WAIT UNTIL YOU ARE SEEN IN YOUR DOCTORS OFFICE WITHIN THE NEXT 1-2 DAYS. IT IS YOUR RESPONSIBILITY TO MAKE AN APPOINTMENT FOR FOLOW-UP CARE. IF YOU HAVE A PRIMARY DOCTOR --you should call your primary doctor and schedule and appointment IF YOU DO NOT HAVE A PRIMARY DOCTOR YOU CAN CALL OUR PHYSICIAN REFERRAL HOTLINE AT . IF YOU CAN NOT AFFORD TO SEE A PHYSICIAN YOU CAN CHOSE FROM THE FOLLOWING [facility] INSTITUTIONS: [facility] [address] [place] [address] [facility] [address] [place], [place] [id number] [place] [address] [address] [place] [address] [facility] URGENT [facility]/SPECIALTIES Additional Instructions: Llame al doctor MAANA y lloyd ian TRINIDAD PARA DENTRO DE 1-2 ISABEL.Dgale a la secretaria que nosotros le instruimos hacer esta trinidad.Avise o llame si lamb condicin se empeora antes de la trinidad. Regresa aqui si peor o no mejor. RY ORTEGA PA-C May 04, 2017 14:09
[2017-05-04 14:25] VITALS: PULSE 103
== END 2017-05-04 14:25 | disposition home or self-care (01) ==
LOC: FTE 09:19
DX: J45.901 Unspecified asthma with (acute) exacerbation (principal); I10 Essential (primary) hypertension
CPT/HCPCS: 71010; 94640; 94644; 96372; 99284; J2930

== ENCOUNTER 2017-09-30 12:31 | Emergency (ER) | payer MEDICARE, OTHER ==
[2017-05-04 09:22] VITALS: BMI 39.4
[~2017-09-30 12:31] MED LIST changes: +ALBU18HF INHALATION
[2017-09-30] MEDS ORDERED: morphine 4 MG/ML VIAL IV STA (13:40)
--- NOTE | 2017-09-30 13:45 | ERD ---
ER Documentation Chief Complaint Chief Complaint HPI 62-year-old female with a history of asthma presents with a chief complaint of right upper quadrant abdominal pain that is persistent over the past couple years but worsening over the past 4-5 days. Has not taken any medications to relieve the symptoms. No surgical history. No sick contacts. Pain is rated 7 out of 10. No worsening or alleviating factors. Patient has no other complaints and describes no other associated manifestations. Nursing notes have been reviewed and are consistent with history given. ROS All systems reviewed and are negative except as per history of present illness. Medications Home Meds Active Scripts Albuterol Sulfate* (Albuterol Sulfate* Neb) 0.083%-3 Ml Neb, 2.5 MG NEB Q4 Y for SHORTNESS OF BREATH, #30 EA Prov:RY ORTEGA PA-C 05/04/17 Albuterol Sulfate* (Ventolin HFA*) 18 Gm Hfa.aer.ad, 2 PUFF INHALATION Q4H, #1 INHALER Prov:RY ORTEGA PA-C 05/04/17 Prednisone* (Prednisone*) 20 Mg Tab, 40 MG PO DAILY for 4 Days, TAB Prov:RY ORTEGA PA-C 05/04/17 Prednisone* (Prednisone*) 20 Mg Tab, 60 MG PO DAILY for 6 Days, TAB Take Prednisone 60mg PO x 3 days, followed by Prednisone 40mg PO x 3 days. Prov:DEWAYNE HAIR PA-C 03/16/17 Albuterol Sulfate* (Albuterol Sulfate* Neb) 0.083%-3 Ml Neb, 2.5 MG NEB Q4 Y for SHORTNESS OF BREATH, #30 EA Prov:DEWAYNE HAIR PA-C 03/16/17 Albuterol Sulfate* (Proair HFA*) 8.5 Gm Hfa.aer.ad, 2 PUFF INH Q4, #2 INHALER Prov:DEWAYNE HAIR PA-C 03/16/17 Albuterol Sulfate (Proair Respiclick) 90 Mcg Aer.pow.ba, 2 PUFFS INHALATION Q3HWA for 7 Days, #1 BOTTLE 1 Refill Prov:PUJA CARRERA 01/29/17 Levofloxacin* (Levaquin*) 750 Mg Tablet, 750 MG PO DAILY for 5 Days, TAB 0 Refills Prov:PUJA CARRERA 01/29/17 Benzonatate* (Tessalon Perle*) 100 Mg Capsule, 200 MG PO Q8H Y for COUGH, #30 CAP 0 Refills Prov:PUJA CARRERA 01/29/17 Hydrocodone-Chlorpheniramine Polis* (Hydrocodone-Chlorpheniramine Polis*) 10-8MG /5ML Yvette.er.12h, 5 ML PO Q12H Y for COUGH, #90 ML 0 Refills Prov:PUJA CARRERA 01/29/17 Prednisone* (Prednisone*) 20 Mg Tab, 60 MG PO DAILY for 5 Days, TAB 0 Refills Prov:PUJA CARRERA 01/29/17 Salmeterol Xinaf-Fluticasone* (Advair HFA*) 45/212 Aerosol Inhaler, 2 INH IH BID , #1 INHALER Prov:MARRY PETERSEN DO 10/02/16 Albuterol Sulfate* (Albuterol Sulfate* HFA) 8.5 Gm Hfa.aer.ad, 1-2 PUFF INH Q4 Y for SHORTNESS OF BREATH, #1 EA Prov:HANY BUCHANAN MD 07/31/15 Allergies Allergies: Coded Allergies: No Known Allergy (Unverified , 09/30/17) PMhx/Soc History of Surgery: No Anesthesia Reaction: No Hx Neurological Disorder: No Hx Respiratory Disorders: Yes Hx Cardiac Disorders: Yes Hx Psychiatric Problems: No Hx Miscellaneous Medical Probl: Yes (gastritis, HTN, asthma) Hx Alcohol Use: No Hx Substance Use: No Hx Tobacco Use: No Physical Exam Physical Exam Const: Obese 62-year-old female in no acute distress Head: Atraumatic Eyes: Normal Conjunctiva ENT: Normal External Ears, Nose and Mouth. Neck: Full range of motion..~ No meningismus. Resp: Clear to auscultation bilaterally Cardio: Regular rate and rhythm, no murmurs. Radial pulses 2+ bilaterally. Abd: Mild to moderate right upper quadrant tenderness. Soft, nondistended, normal bowel sounds. No masses palpated. No McBurney's point tenderness. Negative Vazquez sign. Skin: No petechiae or rashes. No jaundice. Back: No midline or flank tenderness. No CVA tenderness. Ext: No cyanosis, or edema Neur: Awake and alert Psych: Normal Mood and Affect Result Diagram: 11/16/17 1400 09/30/17 1400 Results 24 hrs Laboratory Tests Test 09/30/17 14:00 09/30/17 14:50 White Blood Count 12.910^3/ul Red Blood Count 5.7610^6/ul Hemoglobin 16.0g/dl Hematocrit 49.7% Mean Corpuscular Volume 86.3fl Mean Corpuscular Hemoglobin 27.8pg Mean Corpuscular Hemoglobin Concent 32.2g/dl Red Cell Distribution Width 13.7% Platelet Count 78385^3/UL Mean Platelet Volume 11.9fl Neutrophils % 86.5% Lymphocytes % 8.6% Monocytes % 2.9% Eosinophils % 1.2% Basophils % 0.3% Nucleated Red Blood Cells % 0.0/100WBC Neutrophils # 11.210^3/ul Lymphocytes # 1.110^3/ul Monocytes # 0.410^3/ul Eosinophils # 0.210^3/ul Basophils # 0.010^3/ul Nucleated Red Blood Cells # 0.010^3/ul Sodium Level 144mmol/L Potassium Level 3.7mmol/L Chloride Level 104mmol/L Carbon Dioxide Level 30mmol/L Anion Gap 14 Blood Urea Nitrogen 13mg/dl Creatinine 0.79mg/dl Glucose Level 112mg/dl Calcium Level 9.9mg/dl Total Bilirubin 0.3mg/dl Direct Bilirubin 0.00mg/dl Indirect Bilirubin 0.3mg/dl Aspartate Amino Transf (AST/SGOT) 36IU/L Alanine Aminotransferase (ALT/SGPT) 33IU/L Alkaline Phosphatase 113IU/L Total Protein 8.3g/dl Albumin 4.3g/dl Globulin 4.00g/dl Albumin/Globulin Ratio 1.07 Lipase 55U/L Urine Color ERIBERTO Urine Clarity SLIGHTLY CLOUDY Urine pH 5.0 Urine Specific [place] 1.028 Urine Ketones TRACEmg/dL Urine Nitrite NEGATIVEmg/dL Urine Bilirubin NEGATIVEmg/dL Urine Urobilinogen 1+mg/dL Urine Leukocyte Esterase 1+Lane/ul Urine Microscopic RBC 1/HPF Urine Microscopic WBC 8/HPF Urine Squamous Epithelial Cells MODERATE/HPF Urine Bacteria FEW/HPF Urine Mucus MODERATE/HPF Urine Hemoglobin NEGATIVEmg/dL Urine Glucose NEGATIVEmg/dL Urine Total Protein 1+mg/dl Current Medications Medications (Trade) Dose Ordered Sig/Hussain Route PRN Reason Start Time Stop Time Status Last Admin Dose Admin Morphine Sulfate (morphine) 4 mg ONCE STAT IV 09/30/17 13:40 09/30/17 13:42 DC 09/30/17 14:19 Metoclopramide HCl (Reglan) 10 mg ONCE ONCE IV 09/30/17 14:00 09/30/17 14:01 DC 09/30/17 14:19 Procedures/MDM 62-year-old female with a chief complaint of right upper quadrant abdominal pain. History of asthma. Otherwise healthy. Symptoms 1 year worsening over the past 5 days. Patient was given IV morphine and Zofran with adequate relief of symptoms. No jaundice on physical examination. Right upper quadrant tenderness. Negative Vazquez sign. Ultrasound obtained revealed the following: Single large calcified stone within the gallbladder. Mild fatty infiltration of the liver. CMP was within normal limits. Lipase WNL. CBC showed 13 WBC with 85 neutrophils. Most likely diagnosis is biliary colic. Spoke to my attending who agrees with the assessment and plan. I have no concern for ascending cholangitis, cholecystitis, pancreatitis, mesenteric ischemia, mechanical obstruction, or other acute abdomen or serious bacterial infection. Patient stable and tolerating p.o. Appears well and is appropriate for discharge. I have spoke with the patient regarding their condition and future management. They have verbally responded that they understand their status and treatment plan. The patients vitals are stable, and their current condition is appropriate for discharge. The patient will be given discharge instructions with return precautions. Departure Diagnosis: Primary Impression: Biliary colic Condition: Stable Additional Instructions: Follow up with your PCP within the next 1-3 days for a more thorough evaluation and a possible referral to a specialist. Return the the emergency department immediately if symptoms worsen or change. If you have any questions regarding medications, ask your pharmacist or us before you leave. If any adverse reactions occur while taking your medications, discontinue the treatment and return to the emergency department immediately. Take your medications as directed, and complete the entire course of treatment. DONALD METZ PA-C Sep 30, 2017 13:45
[2017-09-30] MEDS ORDERED: METOCLOPRAMIDE 10 MG INJ IV ONE (14:00)
[2017-09-30 15:07] LABS: BASOPHILS % 0.3 % (0.0-2.0); EOSINOPHILS # 0.2 10^3/ul (0.0-0.5); EOSINOPHILS % 1.2 % (0.0-7.0); HEMATOCRIT 49.7 % (37.0-47.0); LYMPHOCYTES # 1.1 10^3/ul (0.8-2.9); LYMPHOCYTES % 8.6 % (15.0-51.0); MEAN CORPUSCULAR HEMOGLOBIN 27.8 pg (29.0-33.0); MEAN CORPUSCULAR HGB CONC 32.2 g/dl (32.0-37.0); MEAN CORPUSCULAR VOLUME 86.3 fl (82.0-101.0); MEAN PLATELET VOLUME 11.9 fl (7.4-10.4); MONOCYTE # 0.4 10^3/ul (0.3-0.9); MONOCYTES % 2.9 % (0.0-11.0); NEUTROPHIL # 11.2 10^3/ul (1.6-7.5); NEUTROPHILS % 86.5 % (39.0-77.0); PLATELET COUNT 263 10^3/UL (140-415); RED BLOOD COUNT 5.76 10^6/ul (4.20-5.40); RED CELL DISTRIBUTION WIDTH 13.7 % (11.5-14.5); WHITE BLOOD COUNT 12.9 10^3/ul (4.8-10.8)
--- NOTE | 2017-09-30 15:18 | RADRPT ---
PROCEDURE: US Abdomen. CLINICAL INDICATION: abdominal pain TECHNIQUE: Multiple real-time images were acquired of the patient's right upper quadrant abdomen a nd retroperitoneum utilizing a high resolution transducer. COMPARISON: None FINDINGS: The liver demonstrates increased echogenicity. The liver is normal in size and no focal solid lesio ns are seen. The liver measures 16.4 cm in length. The portal vein is patent with normal direction o f flow. No intrahepatic biliary dilatation is seen. There is a 2.1 cm calcified stone within the gallbladder. There is no pericholecystic fluid or gallb ladder wall thickening. The common bile duct measures 4 mm in maximal dimension. The visualized portions of the pancreas are unremarkable. The tail of the pancreas is not seen. No free fluid is identified. The right kidney is normal in size, and demonstrate normal echogenicity and cortical thickness. The right kidney measures 10.1 cm in long dimension. There is no evidence of hydronephrosis. There are no kidney stones. RPTAT: AA IMPRESSION: Single large calcified stone within the gallbladder. Mild fatty infiltration of the liver. .Topher Mcgee MD, MD Date Time Electronically viewed and signed by .Topher Mcgee MD, on 09/30/2017 15:18 .S/
[2017-09-30 15:30] LABS: ADD UMIC YES; UR ASCORBIC ACID 20 mg/dL (NEGATIVE); UR BACTERIA FEW /HPF (NONE SEEN); UR BILIRUBIN (Dip) NEGATIVE (NEGATIVE); UR BLOOD (Dip) NEGATIVE (NEGATIVE); UR CLARITY SLIGHTLY CLOUDY (CLEAR); UR COLOR AMBER (YELLOW); UR GLUCOSE (Dip) NEGATIVE (NEGATIVE); UR KETONES (Dip) TRACE mg/dL (NEGATIVE); UR LEUKOCYTE ESTERASE (Dip) 1+ Leu/ul (NEGATIVE); UR MUCUS MODERATE /HPF (NONE SEEN); UR NITRITE (Dip) NEGATIVE (NEGATIVE); UR RBC 1 /HPF (0-5); UR SPECIFIC GRAVITY (Dip) 1.028 (1.003-1.030); UR SQUAMOUS EPITHELIAL CELL MODERATE /HPF (FEW); UR TOTAL PROTEIN (Dip) 1+ mg/dl (NEGATIVE); UR UROBILINOGEN (Dip) 1+ mg/dL (NEGATIVE)
[2017-09-30 15:30] LABS: ALBUMIN 4.3 g/dl (3.3-4.9); ALBUMIN/GLOBULIN RATIO 1.07; BILIRUBIN,INDIRECT 0.3 mg/dl (0-1.1); BILIRUBIN,TOTAL 0.3 mg/dl (0.2-1.3); CALCIUM 9.9 mg/dl (8.4-10.2); CREATININE 0.79 mg/dl (0.44-1.00); POTASSIUM 3.7 mmol/L (3.5-5.1); TOTAL PROTEIN 8.3 g/dl (6.1-8.1)
[2017-09-30 15:59] VITALS: BP 130/69; PULSE 62; RESP 16; TEMP 98.4
[2017-09-30] MEDS ORDERED: ALBUTEROL 0.083% (NEB) 2.5 MG/3 ML AMP HHN STA (16:06)
[2017-09-30] MEDS ORDERED: IPRATROPIUM (NEB) 0.5 MG/2.5 ML AMP HHN ONE (16:30)
== END 2017-09-30 16:49 | disposition home or self-care (01) ==
LOC: FTE 12:31
DX: K80.50 Calculus of bile duct without cholangitis or cholecystitis without obstruction (principal); I10 Essential (primary) hypertension; J45.909 Unspecified asthma, uncomplicated
CPT/HCPCS: 36415; 76705; 80053; 81001; 83690; 85025; 94664; 96374; 96375; 99285; J2270; J2765

== ENCOUNTER 2018-01-31 20:10 | Inpatient (IN) | END 2018-02-02 16:40 | disposition home or self-care (01) | DRG 202 ==

== ENCOUNTER 2018-05-24 14:19 | Emergency (ER) | END 2018-05-25 00:12 | disposition home or self-care (01) ==

== ENCOUNTER 2018-10-17 11:28 | Emergency (ER) | END 2018-10-17 16:08 | disposition home or self-care (01) ==

== ENCOUNTER 2019-03-08 22:47 | Emergency (ER) | payer OTHER ==
[~2019-03-08] VITALS: Ht 160 cm; Wt 100.2 kg
[~2019-03-08 22:47] MED LIST changes: -ALBU8.5H3 INH; -ALBU8.5H5 INH; -ALBU90AE INHALATION; -BENZ100C70 PO; -FLUT12HF IH; +FLUT1AER INHALATION; -HYDR473S12 PO; -LEVO750T25 PO; -PRED20TA PO; +RANI150T35 PO
[2019-03-08 22:54] VITALS: Ht 160 cm; Wt 100.2 kg
[2019-03-08] MEDS ORDERED: SOD CHLORIDE 0.9% 500 ML IV STA (23:56)
[2019-03-08] MEDS ORDERED: ONDANSETRON 4 MG INJ IV STA (23:56)
[2019-03-08] MEDS ORDERED: morphine 4 MG/ML VIAL IV STA (23:56)
[2019-03-09] MEDS ORDERED: VALS1TAB76 PO (02:21)
[2019-03-09] MEDS ORDERED: FLUT16SP17 NASAL (02:21)
[2019-03-09] MEDS ORDERED: DOCU-144 PO (02:47)
[2019-03-09] MEDS ORDERED: ONDA4TAB14 PO (02:47)
[2019-03-09] MEDS ORDERED: DICY10CA40 PO (02:47)
[2019-03-09 02:58] VITALS: BP 120/76; PULSE 82; RESP 17
--- NOTE | 2019-03-09 03:05 | ERD ---
ER Documentation Chief Complaint Chief Complaint Pt ate food and now having n/v/d and AP HPI This is a very pleasant 60 female comes in with complaints of nausea vomiting diarrhea and abdominal pain after she ate food. Pain is mild to moderate intensity no exacerbating relieving factors. She says she has not had a bowel movement in the past 2 days and had 2 episodes of diarrhea today. No fevers no chills. No other current complaints. ROS All systems reviewed and are negative except as per history of present illness. Medications Home Meds Active Scripts Ondansetron (Ondansetron Odt) 4 Mg Tab.rapdis, 4 MG PO Q6H PRN for NAUSEA AND/OR VOMITING, #10 TAB Prov:DEEPAK SWANN 03/09/19 Docusate Sodium* (Colace*) 100 Mg Capsule, 100 MG PO TID, #30 CAP Prov:DEEPAK SWANN 03/09/19 Dicyclomine HCl (Dicyclomine HCl) 10 Mg Capsule, 10 MG PO TID PRN for ABDOMINAL CRAMPING, #20 CAP Prov:DEEPAK SWANN 03/09/19 Reported Medications Fluticasone Propionate* (Fluticasone Propionate* Nasal) 50 Mcg/Athol - 16 Gm [place]ol.susp, 1 SPRAY NASAL BID, #1 BOTTLE TO EACH NOSTRIL 03/09/19 Valsartan-Hydrochlorothiazide (Valsartan-HCTZ) 160-12.5 Mg Tablet, 1 TAB PO DAILY for 90 Days, #90 03/09/19 Fluticasone-Vilanterol (Breo Ellipta Inhaler) 100-25 Mcg/Actuation Aer.pow.ba, 1 PUFF INHALATION DAILY, #1 INHALER 05/24/18 Albuterol Sulfate* (Ventolin HFA*) 18 Gm Hfa.aer.ad, 2 PUFF INHALATION Q4H, #1 INHALER 01/31/18 Discontinued Reported Medications Albuterol Sulfate* (Albuterol Sulfate* Neb) 0.083%-3 Ml Neb, 2.5 MG NEB TID PRN for WHEEZING AND SOB, #30 VIAL 01/31/18 Discontinued Scripts Albuterol Sulfate* (Ventolin HFA*) 18 Gm Hfa.aer.ad, 2 PUFF INHALATION Q4H, #1 INHALER Prov:MARRY PETERSEN DO 05/24/18 Ranitidine Hcl* (Zantac*) 150 Mg Tablet, 150 MG PO BID, #30 TAB Prov:MARRY PETERSEN DO 05/24/18 Allergies Allergies: Coded Allergies: No Known Allergy (Unverified , 03/09/19) PMhx/Soc History of Surgery: No Anesthesia Reaction: No Hx Neurological Disorder: No Hx Respiratory Disorders: Yes (asthma) Hx Cardiac Disorders: Yes (HTN) Hx Psychiatric Problems: No Hx Miscellaneous Medical Probl: Yes Hx Alcohol Use: Yes (rarely) Hx Substance Use: No Hx Tobacco Use: No Smoking Status: Never smoker Physical Exam Vitals Vital Signs Date Temp Pulse Resp B/P (MAP) Pulse Ox O2 O2 Flow FiO2 Time Delivery Rate 03/09/19 80 17 122/72 100 Nasal 2.0 02:33 (89) Cannula 03/09/19 69 17 122/69 99 Nasal 2.0 02:00 (86) Cannula 03/09/19 60 20 146/59 100 Nasal 2.0 01:30 (88) Cannula 03/09/19 60 18 142/71 100 Room Air 01:00 (94) 03/09/19 57 15 142/72 100 Room Air 00:30 (95) 03/09/19 59 16 148/69 100 Room Air 00:02 (95) 03/08/19 98.9 66 20 187/77 96 22:54 (113) Physical Exam Const: No acute distress Head: Atraumatic Eyes: Normal Conjunctiva ENT: Normal External Ears, Nose and Mouth. Neck: Full range of motion. No meningismus. Resp: Clear to auscultation bilaterally Cardio: Regular rate and rhythm, no murmurs Abd: Soft, non tender, non distended. Normal bowel sounds Skin: No petechiae or rashes Back: No midline or flank tenderness Ext: No cyanosis, or edema Neur: Awake and alert Psych: Normal Mood and Affect Result Diagram: 03/09/19603/09/196 Results 24 hrs Laboratory Tests Test 03/09/19 00:07 White Blood Count 11.0 10^3/ul Red Blood Count 5.36 10^6/ul Hemoglobin 14.8 g/dl Hematocrit 45.9 % Mean Corpuscular Volume 85.6 fl Mean Corpuscular Hemoglobin 27.6 pg Mean Corpuscular Hemoglobin Concent 32.2 g/dl Red Cell Distribution Width 14.1 % Platelet Count 273 10^3/UL Mean Platelet Volume 11.6 fl Immature Granulocytes % 0.400 % Neutrophils % 81.5 % Lymphocytes % 10.9 % Monocytes % 5.1 % Eosinophils % 1.1 % Basophils % 1.0 % Nucleated Red Blood Cells % 0.0 /100WBC Immature Granulocytes # 0.040 10^3/ul Neutrophils # 9.0 10^3/ul Lymphocytes # 1.2 10^3/ul Monocytes # 0.6 10^3/ul Eosinophils # 0.1 10^3/ul Basophils # 0.1 10^3/ul Nucleated Red Blood Cells # 0.0 10^3/ul Sodium Level 142 mmol/L Potassium Level 3.5 mmol/L Chloride Level 103 mmol/L Carbon Dioxide Level 26 mmol/L Anion Gap 13 Blood Urea Nitrogen 23 mg/dl Creatinine 0.95 mg/dl Est Glomerular Filtrat Rate mL/min 59 mL/min Glucose Level 142 mg/dl Calcium Level 9.9 mg/dl Total Bilirubin 0.4 mg/dl Direct Bilirubin 0.00 mg/dl Indirect Bilirubin 0.4 mg/dl Aspartate Amino Transf (AST/SGOT) 26 IU/L Alanine Aminotransferase (ALT/SGPT) 12 IU/L Alkaline Phosphatase 129 IU/L Total Protein 8.0 g/dl Albumin 4.7 g/dl Globulin 3.30 g/dl Albumin/Globulin Ratio 1.42 Lipase 80 U/L Current Medications Medications Dose Sig/Hussain Start Time Status Last (Trade) Ordered Route PRN Stop Time Admin Dose Reason Admin Sodium 500 ml @ Q1H STAT 03/08/19 DC 03/09/19 Chloride 500 mls/hr IV 23:56 00:18 03/09/19 00:55 Morphine 4 mg ONCE STAT 03/08/19 DC 03/09/19 Sulfate IV 23:56 00:18 (morphine) 03/08/19 23:57 Ondansetron 4 mg ONCE STAT 03/08/19 DC 03/09/19 HCl (Zofran IV 23:56 00:17 Inj) 03/08/19 23:57 Procedures/MDM EKG: Rate/Rhythm: [Normal Sinus Rhythm] QRS, ST, T-waves: [No changes consistent w/ acute ischemia] Impression: [No evidence of ischemia or arrhythmia] Chest X-ray 1V Interpreted by me: Soft Tissue: No acute abnormalities Bones: No acute abnormalities Mediastinum/Cardiac Silhouette/Lungs: [No acute abnormalities] Medical decision making: Patient's gastrointestinal symptoms have stabilized while in the department. No evidence of severe dehydration, sepsis, or surgical abdomen. Extensive discussion with family and patient that occult disease cannot be ruled out. 8 hour recheck for repeat abdominal exam is planned. Departure Diagnosis: Primary Impression: Abdominal pain Abdominal location: unspecified location Qualified Codes: R10.9 - Unspecified abdominal pain Condition: Stable Patient Instructions: Abdominal Pain DEEPAK SWANN Mar 09, 2019 03:05
== END 2019-03-09 03:00 | disposition home or self-care (01) ==
LOC: E/R 22:47
DX: R10.9 Unspecified abdominal pain (principal); R11.2 Nausea with vomiting, unspecified; I10 Essential (primary) hypertension; J45.909 Unspecified asthma, uncomplicated
CPT/HCPCS: 36415; 74176; 80053; 81001; 83690; 85025; 96374; 96375; 99285; J2270; J2405; J7040